=== PATIENT | male | born 1970 | race Caucasian/White ===

== ENCOUNTER → 2016-06-18 | Outpatient (CLI) | payer OTHER ==
[~2016-06-18] MED LIST: ASPIR 8181 MG PO; BACTRIM DS TAB1 EACH PO; COZAAR 25MG TAB25 MG PO; DOXYCYCLINE MO100 MG PO; FLEXERIL 10 MG10 MG PO; HYDROCHLOROTHIA25 MG PO; IBUPROFEN800 MG PO; NORCO 7.5-3251 EACH PO; NORVASC 5 MG TAB5 MG PO; PERCOCET 7.5-31 EACH PO; VIBRAMYCIN 100100 MG PO
== END ==
LOC: KOH-I 11:15
DX: M66.272 Spontaneous rupture of extensor tendons, left ankle and foot (principal); R93.7 Abnormal findings on diagnostic imaging of other parts of musculoskeletal system
CPT/HCPCS: 73721

== ENCOUNTER → 2016-07-18 | Day surgery (SDC) | payer OTHER ==
[~2016-07-18] VITALS: Ht 177.8 cm; Wt 113.4 kg
[2016-07-18 09:59] LABS: HEMOGLOBIN 12.3 gm/dl (14.0-17.5); RED BLOOD COUNT 4.08 M/UL (4.20-5.50); WHITE BLOOD COUNT 7.4 K/UL (4.5-11.0)
[2016-07-18 10:12] LABS: BUN/CREATININE RATIO 13 (0-10)
== END | disposition home or self-care (01) ==
LOC: OR 07:45
PROVIDERS: Orthopaedic Surgery
PROC: 0LQP0ZZ Repair Left Lower Leg Tendon, Open Approach (ICD-10-PCS; principal; 2016-07-18 11:45)
DX: S86.012A Strain of left Achilles tendon, initial encounter (principal); I10 Essential (primary) hypertension; Z88.0 Allergy status to penicillin; Z79.1 Long term (current) use of non-steroidal anti-inflammatories (NSAID); Z79.899 Other long term (current) drug therapy; Z98.890 Other specified postprocedural states; W10.9XXA Fall (on) (from) unspecified stairs and steps, initial encounter; Y93.01 Activity, walking, marching and hiking
CPT/HCPCS: 36415; 80048; 85025; J1100; J2250; J2405; J2710; J3010; J3370; J7050; J7120; Q4107

== ENCOUNTER 2016-08-15 11:27 | Inpatient (IN) | payer OTHER ==
[~2016-08-15] VITALS: Ht 180.3 cm; Wt 115.7 kg
[~2016-08-15 11:27] MED LIST changes: -ASPIR 8181 MG PO; -BACTRIM DS TAB1 EACH PO; -DOXYCYCLINE MO100 MG PO; -NORVASC 5 MG TAB5 MG PO; -VIBRAMYCIN 100100 MG PO
[2016-08-15] MEDS ORDERED: IBUPROFEN800 MG PO (16:34)
[2016-08-15] MEDS ORDERED: VIBRAMYCIN 100100 MG PO (16:35)
[2016-08-16 07:20] LABS: BUN/CREATININE RATIO 16 (0-10)
[2016-08-18 04:46] LABS: HEMOGLOBIN 10.9 gm/dl (14.0-17.5); RED BLOOD COUNT 3.7 M/UL (4.20-5.50); WHITE BLOOD COUNT 6.1 K/UL (4.5-11.0)
[2016-08-18 05:03] LABS: BUN/CREATININE RATIO 21 (0-10)
[2016-08-20 05:14] LABS: HEMOGLOBIN 11.2 gm/dl (14.0-17.5); RED BLOOD COUNT 3.82 M/UL (4.20-5.50); WHITE BLOOD COUNT 6.4 K/UL (4.5-11.0)
[2016-08-20 05:47] LABS: BUN/CREATININE RATIO 18 (0-10)
[2016-10-17] MEDS ORDERED: ASPIR 8181 MG PO (16:15)
[2016-10-17] MEDS ORDERED: DOXYCYCLINE MO100 MG PO (18:38)
[2016-10-17] MEDS ORDERED: NORVASC 5 MG TAB5 MG PO (18:39)
[2016-10-20] MEDS ORDERED: BACTRIM DS TAB1 EACH PO (10:21)
== END 2016-08-20 15:54 | disposition home or self-care (01) | DRG 857 ==
LOC: M/S 15:15
PROVIDERS: Internal Medicine Infectious Disease; Orthopaedic Surgery; ADMIT Orthopaedic Surgery
PROC: 0L9 Tendons, Drainage (ICD-10-PCS; 2016-08-17)
PROC: 0LQP0ZZ Repair Left Lower Leg Tendon, Open Approach (ICD-10-PCS; principal; 2016-08-17 10:54)
DX: T81.4XXA Infection following a procedure, initial encounter (principal); L03.116 Cellulitis of left lower limb; L02.416 Cutaneous abscess of left lower limb; B95.62 Methicillin resistant Staphylococcus aureus infection as the cause of diseases classified elsewhere; I10 Essential (primary) hypertension; Y83.8 Other surgical procedures as the cause of abnormal reaction of the patient, or of later complication, without mention of misadventure at the time of the procedure; Z79.02 Long term (current) use of antithrombotics/antiplatelets; Z79.891 Long term (current) use of opiate analgesic; Z79.899 Other long term (current) drug therapy; Z88.0 Allergy status to penicillin; Z98.890 Other specified postprocedural states
CPT/HCPCS: 36415; 80048; 80053; 80202; 85025; 85027; 86140; 87070; 87077; 87186; 87205; G0378; G0379; J2250; J2270; J2405; J3010; J3370; J7030; J7070; J7120

== ENCOUNTER → 2016-08-21 | Outpatient (CLI) | payer OTHER ==
[~2016-08-21] MED LIST changes: +ASPIR 8181 MG PO; +BACTRIM DS TAB1 EACH PO; +DOXYCYCLINE MO100 MG PO; +NORVASC 5 MG TAB5 MG PO; +VIBRAMYCIN 100100 MG PO
== END ==
LOC: OPSV 09:51
DX: T81.4XXA Infection following a procedure, initial encounter (principal)
CPT/HCPCS: 96365; J0875

== ENCOUNTER → 2016-10-01 | Outpatient (CLI) | payer OTHER | LOC: KOH-I 11:00 | DX: I82.812 Embolism and thrombosis of superficial veins of left lower extremity (principal) | CPT/HCPCS: 93971 ==